=== PATIENT | female | born 1995 | race Caucasian/White ===

== ENCOUNTER → 2024-08-27 | Outpatient (CLI) | payer MEDICAID, SELFPAY ==
--- NOTE | 2024-08-27 16:20 | CT_ITS ---
PROCEDURE: SINUS/FACIAL BONE REASON FOR EXAM: OTHER CHRONIC SINUSITIS TECHNIQUE: CT of the paranasal sinuses without contrast. Coronal and Sagittal reconstruction series were provided. One or more dose reduction techniques were used (e.g., Automated exposure control, adjustment of the mA and/or kV according to patient size, use of iterative reconstruction technique). COMPARISON: None. FINDINGS: Frontal: No significant mucosal inflammatory thickening or air-fluid level. Ethmoid: No significant mucosal inflammatory thickening or air-fluid level. Sphenoid: No significant mucosal inflammatory thickening or air-fluid level. Maxillary: No significant mucosal inflammatory thickening or air-fluid level. Turbinates: No significant hypertrophy. Nasal Septum: Mild S shaped deviation. Mastoids/Middle Ears: Clear and well aerated. CT/Sinus/Facial Bone IMPRESSION: No CT evidence of acute or chronic sinusitis. Reading Location: [place] [id number]
== END | disposition home or self-care (01) ==
LOC: CT 16:18
PROVIDERS: Referring Provider Otolaryngology; Visit Provider Otolaryngology
DX: J32.8 Other chronic sinusitis (principal)
CPT/HCPCS: 70486